=== PATIENT | female | born 1940 | race Caucasian/White ===

== ENCOUNTER → 2016-10-07 | Outpatient (CLI) | payer OTHER ==
--- NOTE | 2016-10-07 13:28 | KCIC ---
Bilateral digital screening mammograms with CAD: HISTORY Routine screening. COMPARISON Comparison is made to previous studies dated 10/03/2015 and 07/05/2014. FINDINGS Breast density category B. The skin and nipples show no abnormalities. No abnormal lymph nodes are seen in the axilla. The breast parenchyma shows scattered fibroglandular density. There are no dominant masses, suspicious calcifications or architectural distortions. IMPRESSION No evidence of malignancy. Recommend routine annual mammographic screening. This study was interpreted with the benefit of Computerized Aided Detection (CAD). Mammography is not 100% sensitive in detecting breast cancer. Therefore, a self breast exam and a clinical breast exam are very important. A negative mammogram does not negate a clinically suspicious finding and should not result in a delay in biopsying a clinically suspicious abnormality. BI-RADS category 1. Negative. This patient's information has been entered into a reminder system for the patient to be notified with the results of this examination and a target date for her next mammograms. Electronically signed by: Mary Anne Kessler MD (Oct 07, 2016 13:25:35)
== END | disposition home or self-care (01) ==
LOC: KCIC MAMMO 10:40
PROVIDERS: ATTEND Family Medicine
DX: Z12.31 Encounter for screening mammogram for malignant neoplasm of breast (principal)
CPT/HCPCS: G0202; 77067

== ENCOUNTER → 2017-06-01 | Outpatient (CLI) | payer OTHER ==
--- NOTE | 2017-06-01 11:27 | KCIC ---
Bone Densitometry History: Postmenopausal female. COMPARISON: Bone density, 07/05/2014 Findings: Bone Densitometry was performed with dual photon absorption of the lumbar spine and left proximal femur. Lumbar Spine: Bone density is 1.181 g/cm2 for L1-L4. T-score is 1.2. Z-score is 3.6. Since prior study the bone mineral density is increased by 4.8%. Left total femur: Bone density is 0.866 g/cm2. T-score is -0.6. Z-score is 1.2. No significant change from prior study. IMPRESSION: Bone mineral densities of the lumbar spine and left total femur are normal. World Health Organization definition of osteoporosis and osteopenia for women: normal equals T score at or above -1.0 standard deviations; osteopenia equals T score between -1.0 and -2.5 standard deviations; osteoporosis equals T score at or below -2.5 standard deviations. Electronically signed by: Nam Pedro MD (06/01/2017 11:23 AM) [id number]
--- NOTE | 2017-06-01 11:34 | KCIC ---
PQRS Compliance Statement: One or more of the following individualized dose reduction techniques were utilized for this examination: 1. Automated exposure control 2. Adjustment of the mA and/or kV according to patient size 3. Use of iterative reconstruction technique Coronary calcium score CT chest without contrast History: 77-year-old female with hypercholesterolemia, hypertension, and history of smoking. No family history of CAD. Technique: With retrospective electrocardiogram gating 2.5 mm thick axial reconstructed noncontrast images of the chest at the level of the coronary arteries was performed. Images were post processed on a [employer] workstation and calcium score calculated using the modified Agatston Janowitz protocol. Findings: Total coronary calcium score is 34.9. This is based on the calcium score of 0 of the left main coronary artery, 32 of the left anterior descending artery, score of 2.9 of the left circumflex artery and score of 0 of the right coronary artery. Noncoronary findings demonstrate ectasia of the ascending thoracic aorta. Cardiac size normal, no pericardial effusion. There is a 5 mm noncalcified nodule in the lateral right lower lobe, image 38. IMPRESSION: 1. Patient's total calcium score is 34.9. 2. There is a 5 mm noncalcified nodule in the right lower lobe. Consider CT chest follow-up in 12 months per Fleischner Society guidelines. Electronically signed by: Nam Pedro MD (06/01/2017 11:31 AM) [id number]
== END | disposition home or self-care (01) ==
LOC: KCIC CT 09:06
PROVIDERS: ATTEND Family Medicine
DX: E78.00 Pure hypercholesterolemia, unspecified (principal); I10 Essential (primary) hypertension; R91.1 Solitary pulmonary nodule; Z87.891 Personal history of nicotine dependence; Z78.0 Asymptomatic menopausal state
CPT/HCPCS: 75571; 77080

== ENCOUNTER → 2017-10-08 | Outpatient (CLI) | payer OTHER | END | disposition home or self-care (01) | LOC: KCIC MAMMO 09:41 | DX: Z12.31 Encounter for screening mammogram for malignant neoplasm of breast (principal) | CPT/HCPCS: 77063; 77067 ==

== ENCOUNTER → 2017-10-19 | Outpatient (CLI) | payer OTHER | END | disposition home or self-care (01) | LOC: KCIC MAMMO 09:15 | DX: R92.8 Other abnormal and inconclusive findings on diagnostic imaging of breast (principal) | CPT/HCPCS: 77065 ==

== ENCOUNTER → 2018-06-23 | Outpatient (CLI) | payer OTHER ==
--- NOTE | 2018-06-23 16:57 | KCIC ---
Right hip radiograph 06/23/2018 12:00 AM INDICATION: Chronic right hip pain COMPARISON: None available. TECHNIQUE: None available FINDINGS: There is no acute fracture or dislocation. Bone mineralization is within normal limits. Mild joint space narrowing with subcortical sclerosis along the acetabular rim. Regional soft tissues are within normal limits. There is no soft tissue gas or osseous erosion. IMPRESSION: No acute fracture or dislocation. Mild osteoarthrosis of the right hip. Electronically signed by: Enid Sorto MD (06/23/2018 4:53 PM) [id number]
== END | disposition home or self-care (01) ==
LOC: KCIC 10:40
PROVIDERS: ATTEND Family Medicine
DX: M16.11 Unilateral primary osteoarthritis, right hip (principal)
CPT/HCPCS: 73502

== ENCOUNTER → 2018-09-12 | Outpatient (CLI) | payer OTHER ==
[~2018-09-12] MED LIST: SIMV10TA3 PO
--- NOTE | 2018-09-12 18:54 | KCIC ---
MRI of the Brain/IACs without contrast 09/12/2018 Clinical History: Asymmetrical hearing loss, right greater than left. Bilateral tinnitus for 3 years. Technique: Unenhanced T1-weighted sagittal and axial, T2-weighted axial and coronal and FLAIR, gradient echo and diffusion-weighted axial images of the brain were obtained. Thin section T1-weighted and T2-weighted axial images through the IACs were obtained. The patient refused intravenous gadolinium administration and postcontrast images were unable to be obtained. Findings:No previous imaging studies are available for comparison. There is generalized atrophy. Patchy and several small scattered areas of increased signal intensity are seen within the periventricular and subcortical white matter of both cerebral hemispheres on the FLAIR and T2-weighted images consistent with areas of mild small vessel ischemic disease. No acute parenchymal abnormality is seen. No extra-axial fluid collection is noted. There is no MRI evidence of acute ischemia/infarction. The unenhanced images through the IACs are within normal limits. No abnormal soft tissue mass is definitely visualized. Mild to moderate mucosal thickening in seen scattered throughout the paranasal sinuses. There are minimal bilateral mastoid effusions. Normal flow voids are seen within the major vascular structures surrounding the brain parenchyma. IMPRESSION: No acute parenchymal abnormality is seen. Electronically signed by: Pete Rodriguez MD (09/12/2018 6:51 PM) [id number]
== END | disposition home or self-care (01) ==
LOC: KCIC MRI 11:11
PROVIDERS: ATTEND Otolaryngology
DX: H91.8X3 Other specified hearing loss, bilateral (principal); G31.9 Degenerative disease of nervous system, unspecified; Z79.01 Long term (current) use of anticoagulants; Z90.710 Acquired absence of both cervix and uterus; Z90.49 Acquired absence of other specified parts of digestive tract
CPT/HCPCS: 70551

== ENCOUNTER → 2018-10-27 | Outpatient (CLI) | payer OTHER ==
--- NOTE | 2018-10-27 14:06 | KCIC ---
Bilateral digital screening mammograms with 3-D tomosynthesis: Reason for examination: Routine screening. Comparison is made to previous studies dated 10/08/2017 and 10/07/2016. Bilateral mammograms in CC and oblique projections were obtained with 2-D imaging and 3-D tomosynthesis imaging on a Siemens Inspiration unit and reviewed on the workstation. Interpretation was made with the benefit of CAD. The skin and nipples show no abnormalities. No abnormal axillary lymph nodes are seen. The breast parenchyma shows scattered fatty and fibroglandular density. (Breast density: Category B.) There are no dominant masses, suspicious calcifications or architectural distortion. Benign calcifications are present. Impression: No evidence of malignancy. Recommend routine screening. BI-RAD Category 2: Benign. "Our facility is accredited by the [employer] Mammography Program." This patient's information has been entered into a reminder system for the patient to be notified with the results of her examination and a target date for the next mammogram. Electronically signed by: Meron Kessler MD (10/27/2018 2:03 PM) [id number]
== END | disposition home or self-care (01) ==
LOC: KCIC MAMMO 10:01
PROVIDERS: ATTEND Family Medicine
DX: Z12.31 Encounter for screening mammogram for malignant neoplasm of breast (principal); N64.89 Other specified disorders of breast
CPT/HCPCS: 77063; 77067